=== PATIENT | male | born 1965 | race Caucasian/White ===

== ENCOUNTER 2017-10-27 00:56 | Observation (INO) ==
[2017-10-27] MEDS ORDERED: ONDANSETRON 4 MG/2 ML VIAL IVP ONE (01:10)
[2017-10-27] MEDS ORDERED: KETOROLAC 15 MG/1 ML VIAL IVP ONE (01:10)
[2017-10-27] MEDS ORDERED: Sodium Chloride 0.9% 1,000 ML PRIMARY IV ONE (01:10)
[2017-10-27] MEDS ORDERED: NITROGLYCERIN 0.4 MG SL TAB (BOTTLE OF 3) SL ONE ×2 (01:12→03:33)
--- NOTE | 2017-10-27 01:14 | EKG ---
[address] [address] Measurements Intervals [place] Rate: 86 P: 78 KS: 191 QRS: -63 QRSD: 148 T: -21 QT: 402 QTc: 446 Interpretive Statements SINUS RHYTHM RIGHT BUNDLE BRANCH BLOCK LEFT ANTERIOR FASCICULAR BLOCK No previous ECG available for comparison Electronically Signed On 10-27-17 20:09:49 [facility] by Camilo Norman [email or web address]
[2017-10-27 01:20] LABS: BASOPHILS # (AUTO) 0.04 10*3/UL; BASOPHILS % (AUTO) 0.4 % (0-1); EOSINOPHILS # (AUTO) 0.11 10*3/UL; EOSINOPHILS % (AUTO) 1.2 % (0-8); Hematocrit [HCT] 44.3 % (42.0-52.0); Hemoglobin [HGB] 14.8 g/dL (14.0-18.0); LYMPHOCYTES # (AUTO) 1.52 10*3/uL; MEAN CORPUSCULAR HEMOGLOBIN 31.6 PG (27-31); MEAN CORPUSCULAR HGB CONC 33.4 g/dL (33-37); MEAN CORPUSCULAR VOLUME 94.5 FL (80-90); MEAN PLATELET VOLUME 9.4 FL (7.4-12.2); MONOCYTES # (AUTO) 0.86 10*3/UL (0.3-0.8); MONOCYTES % (AUTO) 9.2 % (5-15); NEUTROPHILS # (AUTO) 6.75 10*3/UL; NEUTROPHILS % (AUTO) 72.7 % (50-80); RED BLOOD COUNT 4.69 10^6/uL (4.70-6.10)
--- NOTE | 2017-10-27 01:21 | PDOC ---
Chest Pain HPI - General Chief Complaint: Chest Pain Stated Complaint: CHEST PAIN Date Seen by Provider: 10/27/17 Time Seen by Provider: 01:13 Source: Patient, EMS Exam Limitations: POSITIVE: No limitations Treatment Prior to Arrival: REPORTS: Nitroglycerin, Oxygen, Aspirin Nurse's Notes Reviewed & Considered: Yes EMS Report Reviewed & Considered: Verbal - History of Present Illness Initial Comments: This is a 52-year-old male complaining of chest pain, left-sided weakness, and left-sided neck pain. 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 Patient took a sublingual nitroglycerin and an adult aspirin prior to EMS arrival. His nitroglycerin is out of date by 2 years. Patient states the nitroglycerin did not help. During transport to the emergency room he received another nitroglycerin, and stated once again that it did not help. Patient attends the [place] [facility] in [place]. He states that in the past he has had chest pain for which she receives Dilaudid. He denies any vomiting or diarrhea, no hematuria dysuria, and no myalgias or arthralgias. Body Location Affected: REPORTS: Upper Extremity (L), Lower Extremity (L), Neck , Chest Timing: REPORTS: Abrupt Duration: 1 hour Severity: Severe Context: REPORTS: Other (Driving) Quality: REPORTS: "Pain", Stabbing, Pressure Radiation: REPORTS: Shoulder (L) Associated Symptoms: REPORTS: Nausea, Diaphoresis, Shortness of Breath Modifying Factors: improves with: None Reported Similar Symptoms Previously: Yes Recently seen/treated/hospitalized: No Any Prior Injuries Related to Current Complaint?: No - Patient Home Medications Home Medications: Home Medications Amlodipine Besylate 5 mg PO QAM 10/27/17 Aspirin [Aspir 81] 81 mg PO QAM 10/27/17 Atorvastatin Calcium 80 mg PO QAM 10/27/17 Levothyroxine Sodium [Synthroid] 175 mcg PO QAM 10/27/17 Losartan [Cozaar] 100 mg PO QAM 10/27/17 Metoprolol Succinate 100 mg PO QAM 10/27/17 Nitroglycerin [Nitrostat] 0.4 mg SL PRN PRN 10/27/17 - Patient Allergies Allergies/Adverse Reactions: Allergies 3 Allergy/AdvReac Type Severity Reaction Status Date / Time Sulfa (Sulfonamide Allergy HIVES Verified 10/27/17 01:06 Antibiotics) ROS - Limitations ROS Limitations: No Limitations Constitution: REPORTS: Diaphoresis Cardiovascular: REPORTS: Chest Pain, Edema Respiratory: REPORTS: Shortness Of Breath Neurological: REPORTS: Tingling, Numbness (Left upper and lower extremity) Gastrointestinal: REPORTS: Nausea Endocrine: REPORTS: Denies Symptoms Musculoskeletal: REPORTS: Lower Extremity Swelling, Pedal Edema Genitourinary: REPORTS: Denies Symptoms Eyes: REPORTS: Denies Symptoms ENT: REPORTS: Denies Symptoms Skin: REPORTS: Denies Skin Symptoms Lympathic: REPORTS: Denies Lympathic Symptoms Immunologic: POSITIVE: Denies Symptoms Psychiatric: POSITIVE: Denies Psych Symptoms Chest Pain PE - General Appearance General Appearance: REPORTS: Alert, Cooperative, No Evidence of Trauma, Moderate Distress - HEENT HEENT: POSITIVE: Head Inspection Nml, Eyes Inspection Nml, Ears Inspection Nml, Nose Inspection Nml, Oral/Dental Inspect. Nml, Pharynx Inspect. Nml, PERRL, EOMI - Neck Neck: REPORTS: Normal Inspection - Respiratory Respiratory: REPORTS: No Respiratory Distress, Breath Sounds Normal, Chest Non- Tender - Cardiovascular Cardiovascular: REPORTS: Regular Rate and Rhythm, Heart Sounds Normal, Strong Pulses, No Murmur, No Gallop, No Friction Rub, No JVD Peripheral Pulses: Radial (R): 4+ - Abdomen Abdomen: Soft: (All Quadrants), Normal Bowel Sounds: (All Quadrants), Denies Tenderness: (All Quadrants), No Splenomegaly: (All Quadrants), No Hepatomegaly: (All Quadrants), No Guarding: (All Quadrants), No Rebound: (All Quadrants), No Palpable Pulse: (All Quadrants), No Palpabale Mass: (All Quadrants), No Distention: (All Quadrants), No Rigidity: (All Quadrants) - Skin Skin: REPORTS: Intact, Normal For Race, Warm, No Rash, Diaphoresis - Extremities Extremity: Non-Tender: (All Extremities), Normal ROM: (All Extremities), Normal Inspection: (All Extremities), Pelvis Stable: (All Extremities), Edema / Swelling: (RLE), (LLE) (Plus3 pitting edema), Positive Theodore's Sign: (RLE), (LLE ) - Neurological / Psychological Neurological: 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, 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 Normal As Tested, Motor Normal, Sensation Normal, Other (No unilateral or lateralizing findings are appreciated) Reflexes: Patellar (R): 3+, Patellar (L): 3+, Radial (R): 4+, Radial (L): 4+ Chest Pain Progress - Results Reviewed by me Xrays/CTs/US Reviewed by me: Yes Discussed with Radiologist: Yes Lab Results Reviewed by Me: Yes CBC and BMP: 10/27/17 01:19 10/27/17 01:19 EKG Interpreted/Reviewed By Me:: Yes (Sinus with RBBB) EKG Interpretation:: POSITIVE: Normal Sinus Rhythm - Patient's Progress Pain Medication Addressed: POSITIVE: Yes Re-Examine Time: 04:11 Status: POSITIVE: Improved MDM / ED Course: Patient was evaluated, an IV started, blood drawn and sent to the lab for studies, radiographic and EKG studies were also obtained. Findings: Initial EKG showed a sinus rhythm with a right bundle branch block and ST depression in leads V5 and V6. CBC is unremarkable, comprehensive metabolic panel shows a potassium of 3.5 and a sodium of 146. CRP is elevated at 1.6. Magnesium is normal. Troponin and CK-MB as well as d-dimer are normal. BNP is normal. Urinalysis is negative. Chest x-ray shows cardiomegaly. CT scan of his chest shows no PE present no aortic dissection. Ultrasound of his bilateral lower extremity shows no DVT present. Patient developed recurrent chest pain at approximately 04 100 and a repeat EKG and troponin were obtained. Repeat troponin was 0 and repeat EKG showed no changes. Assessment: Chest pains with normal cardiac enzymes and equivocal EKG. Chest pain was relieved with sublingual nitroglycerin. Patient is being admitted for rule out myocardial infarction. Plan: Admission for rule out of myocardial infarction. Quality Measure Initiative: CP/AMI: POSITIVE: EKG, ASA Quality Measure Initiative: CAP: POSITIVE: CXR or CT - Consult Consult (If Yes, Name of Consulting MD & Time Called): Yes (Dr. Weathers, 0410 hrs ) Counseled: POSITIVE: Patient, RE: Lab Results, RE: Radiology Results, RE: DX Patient Care Time - Estimated PCT Patient Care Time (In Minutes): 45 Vital Signs - Recent Vital Signs Vital Signs: Vital Signs (Last 8 hours) Temp Pulse Resp BP Pulse Ox 10/27/17 00:55 97.9 F 86 22 156/96 93 - VS Reviewed Vital Signs Reviewed: Yes Discharge Clinical Impression: Chest pain Discharge Disposition: Admit to Inpatient Condition: Stable Date Decision to Admit to Inpatient: 10/27/17 Time Decision to Admit to Inpatient: 04:13
[2017-10-27 01:22] LABS: PLATELET MORPHOLOGY COMMENT NORMAL MORPHOLOGY (NORM); RBC MORPHOLOGY COMMENT NORMAL MORPHOLOGY (NORM); WBC MORPHOLOGY COMMENT NORMAL MORPHOLOGY (NORM)
[2017-10-27 01:31] LABS: HEMOGLOBIN A1C 5.57 % (4.2-6.0)
[2017-10-27 01:37] LABS: BLOOD UREA NITROGEN 16 mg/dL (7-22); BUN/CREATININE RATIO 17.77 (6-20); SERUM ALBUMIN 4.1 g/dL (3.5-4.8)
[2017-10-27 01:58] LABS: BILIRUBIN,URINE SMALL (NEG); CLARITY,URINE CLEAR (CLEAR); COLOR,URINE YELLOW (Y); GLUCOSE, URINE (UA) 250 mg/dL (NEG); OCCULT BLOOD,URINE Trace-intact (NEG); PH,URINE 6.5 (5.0-8.5); PROTEIN,URINE TRACE mg/dl (NEG)
[2017-10-27 02:05] LABS: BACTERIA,URINE RARE; SQUAMOUS EPITHELIAL CELL,UR MODERATE; URINE SAMPLE TYPE CLEAN CATCH URINE; WBC,URINE 0-1
--- NOTE | 2017-10-27 02:25 | DI ---
EXAM: XR Chest, 1 View CLINICAL HISTORY: chest pain and SOB TECHNIQUE: Frontal view of the chest. COMPARISON: No relevant prior studies available. FINDINGS: Lungs: Prominent pulmonary vascularity. Mild basilar atelectasis or infiltrate. Pleural space: Trace left pleural effusion not excluded. No pneumothorax. Heart: Enlarged cardiomediastinal silhouette, may be related to technique. Mediastinum: See above. Bones/joints: Spinal hardware noted. IMPRESSION: 1. Prominent pulmonary vascularity. Mild basilar atelectasis or infiltrate. 2. Trace left pleural effusion not excluded. 3. Enlarged cardiomediastinal silhouette, may be related to technique.
--- NOTE | 2017-10-27 03:42 | DI ---
EXAM: CT Head Without Intravenous Contrast CLINICAL HISTORY: pain TECHNIQUE: Axial computed tomography images of the head/brain without intravenous contrast. COMPARISON: No relevant prior studies available. FINDINGS: Brain: No hemorrhage. No acute cortical infarct. No mass effect or midline shift. Ventricles: Unremarkable. Bones/joints: No acute fracture. Soft tissues: Unremarkable. Sinuses: Mild sinus disease. Mastoid air cells: Unremarkable as visualized. IMPRESSION: No acute intracranial process.
--- NOTE | 2017-10-27 03:45 | EKG ---
[address] [place] [address] Measurements Intervals [place] Rate: 62 P: 70 [place]: 201 QRS: -1 QRSD: 150 T: -13 QT: 469 QTc: 475 Interpretive Statements SINUS RHYTHM RIGHT BUNDLE BRANCH BLOCK Compared to ECG 10/27/2017 01:06:07 Left anterior fascicular block no longer present Electronically Signed On 10-27-17 20:09:07 [facility] by Camilo Norman [id number]
--- NOTE | 2017-10-27 03:50 | DI ---
EXAM: US Duplex Bilateral Lower Extremity Veins CLINICAL HISTORY: Bilateral edema and calf pain TECHNIQUE: Real-time ultrasound scan of the veins of the bilateral lower extremities with color Doppler flow, spectral waveform analysis and compression. COMPARISON: No relevant prior studies available. FINDINGS: Right deep veins: No DVT in the visualized right lower extremity veins. The veins are compressible with normal color flow and augmentation. Right superficial veins: Unremarkable as visualized. Left deep veins: No DVT in the visualized left lower extremity veins. The veins are compressible with normal color flow and augmentation. Left superficial veins: Unremarkable as visualized. Soft tissues: Mild subcutaneous edema. IMPRESSION: No evidence of deep venous thrombosis.
--- NOTE | 2017-10-27 04:00 | DI ---
EXAM: CT Angiography Chest With Intravenous Contrast CLINICAL HISTORY: SOB. Pain. TECHNIQUE: Axial computed tomographic angiography images of the chest with intravenous contrast using pulmonary embolism protocol. MIP reconstructed images were created and reviewed. COMPARISON: No relevant prior studies available. FINDINGS: Limitations: Please note the lung bases are not entirely included in the [id number]. Pulmonary arteries: No pulmonary embolism. Aorta: No aortic aneurysm or dissection. Lungs: Dependent lung densities, likely atelectasis. Mild peribronchial thickening. Pleural space: No significant pleural effusion or pneumothorax. Heart: Mild cardiomegaly. Bones/joints: No acute fracture. Soft tissues: Probable sebaceous cyst in the right mid-upper back. . Lymph nodes: Unremarkable. IMPRESSION: 1. No evidence of pulmonary embolism or aortic dissection. 2. Dependent lung densities, likely atelectasis. Mild peribronchial thickening.
[2017-10-27] MEDS ORDERED: Acetaminophen 1000mg Inj 1,000 MG/100 ML VIAL IV PRN ×2 (04:06→04:09)
[2017-10-27] MEDS ORDERED: NITROGLYCERIN 0.4 MG SL TAB (BOTTLE OF 3) SL PRN (04:45)
[2017-10-27] MEDS ORDERED: CALCIUM CARBONATE 500 MG (TUMS) CHEWABLE TABLET PO PRN (04:45)
[2017-10-27] MEDS ORDERED: ONDANSETRON 4 MG/2 ML VIAL IVP PRN (04:45)
[2017-10-27] MEDS ORDERED: NORMAL SALINE 10 ML SYRINGE FLUSH IVP PRN (04:45)
[2017-10-27] MEDS ORDERED: LIDOCAINE W/ SODIUM BICARB 0.5 ML SYR SUBD PRN (04:45)
[2017-10-27 04:58] VITALS: RESP 20
[2017-10-27] MEDS ORDERED: HYDROcodone-APAP 5 MG -325 MG TABLET PO PRN (05:05)
[2017-10-27 06:10] LABS: AMPHETAMINE SCREEN NEGATIVE (NEG); CANNABINOID SCREEN,URINE NEGATIVE (NEG); COCAINE SCREEN NEGATIVE (NEG); METHADONE URINE SCREEN NEGATIVE (NEG); METHAMPHETAMINES SCREEN,URINE NEGATIVE (NEG); OPIATE SCREEN,URINE NEGATIVE (NEG); URINE SAMPLE TYPE CLEAN CATCH URINE
[2017-10-27] MEDS ORDERED: oxyCODONE/APAP 10/325 Tab 1 EACH TAB PO PRN (07:31)
--- NOTE | 2017-10-27 07:34 | PDOC ---
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 the pain described as squeezing 8 out of 10 there was shortness of breath and nausea he said he found a place to park her the truck. A Student route sales delivery drivers supervisor was with him called the medics. He tried some old nitroglycerin that he had but continued to have the pain. The medics gave him aspirin and nitroglycerin and the pain started to ease up. And he was giving when he is in the ER also more nitroglycerin that helped to bring the pain down to 3. Also improved numbness in his left arm.d Continue to have some numbness in the left face and some pain he said in the medial aspect of the left leg. He had EKG done CT scans of head and CT chest are all negative. And he was admitted. He had another episode half an hour before I saw him he was given nitroglycerin and that helped ease his pain. he Describes pain maybe 2 out of 10. He said he had chest pains before but this is worse than before. At that time they had to adjust the dosage of his levothyroxine. He said they gave him nitroglycerin mainly for high blood pressure but not for chest pain. Past Medical History Medical History: 1. Hypertension. 2. Hypercholesterolemia. 3. Sleep apnea on CPAP with oxygen at night. 4. History of thyroid cancer status post thyroidectomy. 5. Hypothyroidism Surgical History: 1. History of previous back surgeries. 2. History of thyroidectomy for thyroid cancer Pertinent Family History: 1. Mother from massive heart attack at age 41, brother had SD and is younger than him Past Social History: He said a pack of cigarettes would last him a week, used to smoke heavier than that . Occasionally drinks. No drugs. 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 Tobacco Use: Light Tobacco Smoker In the Past 12 Months, Have Used or Abuse Any of the Following Substance: None Alcohol Use: Occasionally Medication / Allergies Home Medications: Home Medications Medication Instructions Recorded Confirmed Type Amlodipine Besylate 5 mg PO QAM 10/27/17 10/27/17 History Aspirin [Aspir 81] 81 mg PO QAM 10/27/17 10/27/17 History Atorvastatin Calcium 80 mg PO QAM 10/27/17 10/27/17 History Levothyroxine Sodium [Synthroid] 175 mcg PO QAM 10/27/17 10/27/17 History Losartan [Cozaar] 100 mg PO QAM 10/27/17 10/27/17 History Metoprolol Succinate 100 mg PO QAM 10/27/17 10/27/17 History Nitroglycerin [Nitrostat] 0.4 mg SL PRN PRN 10/27/17 10/27/17 History Allergies/Adverse Reactions: Allergies 3 Allergy/AdvReac Type Severity Reaction Status Date / Time Sulfa (Sulfonamide Allergy HIVES Verified 10/27/17 06:24 Antibiotics) Review of Systems - Review of Systems All Systems: Reviewed & No Additional Complaints Except as Stated Exam - Vitals Vital Signs: Vital Signs Temperature 98.2 F Temperature Source Temporal Artery Scan Pulse Rate [Pulse Oximeter] 70 Pulse Rate [Telemetry] 86 Respiratory Rate 20 Blood Pressure [Right Arm] 128/69 Pulse Ox 91 Oxygen Delivery Method Room Air Height 5 ft 10 in Weight 356 lb - General General Appearance: No Acute Distress, Obese, Morbidly Obese - Head Head Exam: Normal Inspection - Eye Eye Exam: POSITIVE: Normal Appearance - ENT ENT Exam: POSITIVE: Normal Exam - Neck Neck Exam: Normal Inspection - Respiratory Respiratory Exam: POSITIVE: Clear to Auscultation - Bilaterally - Cardiovascular Cardiovascular Exam: POSITIVE: RRR - GI/Abdominal GI/Abdominal Exam: POSITIVE: Normal Bowel Sounds, Non Tender, Non Distended, Soft, No Organomegaly - Rectal Rectal Exam: POSITIVE: Deferred - External Exam: POSITIVE: Deferred Exam: POSITIVE: Deferred - Extremities Extremities Exam: POSITIVE: Normal Inspection - Back Back Exam: POSITIVE: Normal Inspection - Neurological Neurological Exam: POSITIVE: Alert, Oriented x 3, CN II-XII Intact, No Facial Droop, Speech Intact / Clear, Moves All Extremities Equally - Psychiatric Psychiatric Exam: POSITIVE: Normal Affect - Integumentary Integumentary Exam: POSITIVE: Normal Color Results - Labs CBC and BMP: 10/27/17 01:19 10/27/17 01:19 - EKG Data -: EKG Interpreted by Me (Showed sinus rhythm with right bundle branch block.) - Imaging Status: Report Reviewed by Me (CT of the chest was negative for PE, CT of the head showed no intracranial abnormality, ultrasound of the leg was negative for DVT.) Assessment and Plan - Patient Problems (1) Chest pain Current Visit: Yes Status: Acute Comment: I did tell him the thing that doesn't fit is the leg symptoms into his symptoms chest pain . I think though with the chest pain will rule him out and then will do a stress test. Will do a chemical stress test for him. If he has a recurrence of the chest I May speak with the reel tender. Meanwhile continue with aspirin. Code(s): R07.9 - Chest pain, unspecified (2) Left leg numbness Current Visit: Yes Status: Acute Comment: He described in addition to the left arm and neck numbness, pain and also left leg numbness. Hard to explain I think will do an MRI of his head to rule out ischemic events. Code(s): R20.0 - Anesthesia of skin
--- NOTE | 2017-10-27 08:59 | DCSUMMARY ---
Hospitalization Summary Admit Date: 10/27/2017 Discharge Date: 10/27/17 Hospital Course: Transfer diagnoses 1. Episode of chest pain enzymes negative, unable to do a stress test because of his weight 2. Morbid obesity 3. Hypertension 4. Hypercholesterolemia 5. 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 the pain described as squeezing 8 out of 10 there was shortness of breath and nausea he said he found a place to park his truck. A Student cpr ambulance driver was with him called the medics. He tried some old nitroglycerin that he had but continued to have the pain. The medics gave him aspirin and nitroglycerin and the pain started to ease up. And he was given when he is in the ER also more nitroglycerin that helped to bring the pain down to 3. Also numbness in his left arm improved. he Continued to have some numbness in the left face and some pain he said in the medial aspect of the left leg. He had an EKG done CT scans of head and CT chest all are negative, he was admitted for rule out. He had another episode half an hour before I saw him he was given nitroglycerin and that helped ease his pain. he Describes his pain maybe 2 out of 10. He said he had chest pains before but this is worse than before. At that time they had to adjust the dosage of his levothyroxine. He said they gave him nitroglycerin mainly for high blood pressure but not for chest pain. We were planning to do an MRI of his head and also to do a stress test. However I was called by the fiber technician because of his weight we can't do the stress test here. He needs pharmacological stress test. Because of inability to perform the test here I spoke with the bead wire taper in [place] Dr. Barr and he accepted the patient the patient will be transferred once a bed is available there. I did explain that to the patient and he agreed with the plan of transfer there. Laboratory Results 10/27/17 10/27/17 10/27/17 Range/Units 01:19 01:19 01:19 WBC 9.30 (4.8-10.8) 10^3/uL RBC 4.69 L (4.70-6.10) 10^6/uL Hgb 14.8 (14.0-18.0) g/dL Hct 44.3 (42.0-52.0) % MCV 94.5 H (80-90) FL MCH 31.6 H (27-31) PG MCHC 33.4 (33-37) g/dL RDW Std Deviation 43.6 (39-50) fL RDW Coeff of Margarita 13.1 (11.5-14.5) % Plt Count 281 (140-350) 10*3/uL MPV 9.4 (7.4-12.2) FL Immature Gran % (Auto) 0.2 (0-5) % Neut % (Auto) 72.7 (50-80) % Lymph % (Auto) 16.3 (10-50) % [place] % (Auto) 9.2 (5-15) % Eos % (Auto) 1.2 (0-8) % Baso % (Auto) 0.4 (0-1) % Immature Gran # (Auto) 0.02 10*3/UL Neut # (Auto) 6.75 10*3/UL Lymph # (Auto) 1.52 10*3/uL [place] # (Auto) 0.86 H (0.3-0.8) 10*3/UL Eos # (Auto) 0.11 10*3/UL Baso # (Auto) 0.04 10*3/UL WBC Morphology Comment Normal morphology (NORM) Plt Morphology Comment Normal morphology (NORM) RBC Morph Comment Normal morphology (NORM) D-Dimer 0.37 (0.00-0.59) mg/L Sodium 146 H (135-145) meq/L Potassium 3.5 L (3.8-5.2) meq/L Chloride 109 (98-112) meq/L Carbon Dioxide 25 (23-33) meq/L Anion Gap 12 (5-20) BUN 16 (7-22) mg/dL Creatinine 0.9 (0.70-1.50) mg/dL Estimated GFR > 60 (>60 ml/min/1.73m(2)) BUN/Creatinine Ratio 17.77 (6-20) Glucose 152 H (78-110) mg/dL Mean Blood Glucose mg/dL Hemoglobin A1c (4.2-6.0) % Calculated Osmolality 305.0 H (267-292) mOsm/kg Calcium 9.0 (8.7-10.7) mg/dL Magnesium 2.0 (1.6-2.4) mg/dL Total Bilirubin 0.5 (0.3-1.2) mg/dL AST 17 L (21-57) IU/L ALT 24 (21-72) IU/L Alkaline Phosphatase 99 (38-126) IU/L CK-MB (CK-2) (0.00-5.00) NG/ML Troponin I Handheld (< 0.040) ng/mL Troponin I (< 0.040) ng/mL C-Reactive Protein 1.8 H (0.0-0.9) mg/dL NT-Pro-B Natriuret Pep 63.4 (0-125) PG/ML Total Protein 7.3 (6.1-8.0) g/dL Albumin 4.1 (3.5-4.8) g/dL Globulin 3.2 (2.50-4.10) g/dL Albumin/Globulin Ratio 1.20 L (1.3-2.0) mg/g TSH (0.2700-4.2000) uIU/mL Free T4 (0.93-1.71) ng/dL Free T3 pg/mL (2.77-5.27) PG/ML Ur Collection Type Urine Color (Y) Urine Clarity (CLEAR) Urine pH (5.0-8.5) Ur Specific [place] (1.005-1.030) U Specif Grav (Refrac) Urine Protein (NEG) mg/dl Urine Glucose (UA) (NEG) mg/dL Urine Ketones (NEG) Urine Occult Blood (NEG) Urine Nitrate (NEG) Urine Bilirubin (NEG) Urine Urobilinogen (0.2) EU/dL Ur Leukocyte Esterase (NEG) Urine RBC (NONE) /hpf Urine WBC (NONE) Ur Squamous Epith Cells (NONE) Ur Renal Epithelial Cell (NONE) Urine Crystals Urine Bacteria (NONE) Urine Casts (NONE) Urine Mucus (NONE) Urine Trichomonas (NONE) Urine Yeast (NONE) Ur Culture Indicated? Urine Opiates Screen (NEG) Ur Buprenorphine (NEG) Ur Oxycodone Screen (NEG) Urine Methadone Screen (NEG) Ur Propoxyphene Screen (NEG) Barbiturate Screen (NEG) U Tricyclic Antidepress (NEG) Phencyclidine Screen (NEG) Amphetamines Screen (NEG) U Methamphetamines Scrn (NEG) Benzodiazepines Screen (NEG) Cocaine Screen (NEG) U Marijuana (THC) Screen (NEG) 10/27/17 10/27/17 10/27/17 Range/Units 01:19 01:19 01:19 WBC (4.8-10.8) 10^3/uL RBC (4.70-6.10) 10^6/uL Hgb (14.0-18.0) g/dL Hct (42.0-52.0) % MCV (80-90) FL MCH (27-31) PG MCHC (33-37) g/dL RDW Std Deviation (39-50) fL RDW Coeff of Margarita (11.5-14.5) % Plt Count (140-350) 10*3/uL MPV (7.4-12.2) FL Immature Gran % (Auto) (0-5) % Neut % (Auto) (50-80) % Lymph % (Auto) (10-50) % [place] % (Auto) (5-15) % Eos % (Auto) (0-8) % Baso % (Auto) (0-1) % Immature Gran # (Auto) 10*3/UL Neut # (Auto) 10*3/UL Lymph # (Auto) 10*3/uL [place] # (Auto) (0.3-0.8) 10*3/UL Eos # (Auto) 10*3/UL Baso # (Auto) 10*3/UL WBC Morphology Comment (NORM) Plt Morphology Comment (NORM) RBC Morph Comment (NORM) D-Dimer (0.00-0.59) mg/L Sodium (135-145) meq/L Potassium (3.8-5.2) meq/L Chloride (98-112) meq/L Carbon Dioxide (23-33) meq/L Anion Gap (5-20) BUN (7-22) mg/dL Creatinine (0.70-1.50) mg/dL Estimated GFR (>60 ml/min/1.73m(2)) BUN/Creatinine Ratio (6-20) Glucose (78-110) mg/dL Mean Blood Glucose 99.481 mg/dL Hemoglobin A1c 5.57 (4.2-6.0) % Calculated Osmolality (267-292) mOsm/kg Calcium (8.7-10.7) mg/dL Magnesium (1.6-2.4) mg/dL Total Bilirubin (0.3-1.2) mg/dL AST (21-57) IU/L ALT (21-72) IU/L Alkaline Phosphatase (38-126) IU/L CK-MB (CK-2) 0.41 (0.00-5.00) NG/ML Troponin I Handheld 0.000 (< 0.040) ng/mL Troponin I (< 0.040) ng/mL C-Reactive Protein (0.0-0.9) mg/dL NT-Pro-B Natriuret Pep (0-125) PG/ML Total Protein (6.1-8.0) g/dL Albumin (3.5-4.8) g/dL Globulin (2.50-4.10) g/dL Albumin/Globulin Ratio (1.3-2.0) mg/g TSH 9.71 H (0.2700-4.2000) uIU/mL Free T4 (0.93-1.71) ng/dL Free T3 pg/mL (2.77-5.27) PG/ML Ur Collection Type Urine Color (Y) Urine Clarity (CLEAR) Urine pH (5.0-8.5) Ur Specific [place] (1.005-1.030) U Specif Grav (Refrac) Urine Protein (NEG) mg/dl Urine Glucose (UA) (NEG) mg/dL Urine Ketones (NEG) Urine Occult Blood (NEG) Urine Nitrate (NEG) Urine Bilirubin (NEG) Urine Urobilinogen (0.2) EU/dL Ur Leukocyte Esterase (NEG) Urine RBC (NONE) /hpf Urine WBC (NONE) Ur Squamous Epith Cells (NONE) Ur Renal Epithelial Cell (NONE) Urine Crystals Urine Bacteria (NONE) Urine Casts (NONE) Urine Mucus (NONE) Urine Trichomonas (NONE) Urine Yeast (NONE) Ur Culture Indicated? Urine Opiates Screen (NEG) Ur Buprenorphine (NEG) Ur Oxycodone Screen (NEG) Urine Methadone Screen (NEG) Ur Propoxyphene Screen (NEG) Barbiturate Screen (NEG) U Tricyclic Antidepress (NEG) Phencyclidine Screen (NEG) Amphetamines Screen (NEG) U Methamphetamines Scrn (NEG) Benzodiazepines Screen (NEG) Cocaine Screen (NEG) U Marijuana (THC) Screen (NEG) 10/27/17 10/27/17 10/27/17 Range/Units 01:19 01:19 01:56 WBC (4.8-10.8) 10^3/uL RBC (4.70-6.10) 10^6/uL Hgb (14.0-18.0) g/dL Hct (42.0-52.0) % MCV (80-90) FL MCH (27-31) PG MCHC (33-37) g/dL RDW Std Deviation (39-50) fL RDW Coeff of Margarita (11.5-14.5) % Plt Count (140-350) 10*3/uL MPV (7.4-12.2) FL Immature Gran % (Auto) (0-5) % Neut % (Auto) (50-80) % Lymph % (Auto) (10-50) % [place] % (Auto) (5-15) % Eos % (Auto) (0-8) % Baso % (Auto) (0-1) % Immature Gran # (Auto) 10*3/UL Neut # (Auto) 10*3/UL Lymph # (Auto) 10*3/uL [place] # (Auto) (0.3-0.8) 10*3/UL Eos # (Auto) 10*3/UL Baso # (Auto) 10*3/UL WBC Morphology Comment (NORM) Plt Morphology Comment (NORM) RBC Morph Comment (NORM) D-Dimer (0.00-0.59) mg/L Sodium (135-145) meq/L Potassium (3.8-5.2) meq/L Chloride (98-112) meq/L Carbon Dioxide (23-33) meq/L Anion Gap (5-20) BUN (7-22) mg/dL Creatinine (0.70-1.50) mg/dL Estimated GFR (>60 ml/min/1.73m(2)) BUN/Creatinine Ratio (6-20) Glucose (78-110) mg/dL Mean Blood Glucose mg/dL Hemoglobin A1c (4.2-6.0) % Calculated Osmolality (267-292) mOsm/kg Calcium (8.7-10.7) mg/dL Magnesium (1.6-2.4) mg/dL Total Bilirubin (0.3-1.2) mg/dL AST (21-57) IU/L ALT (21-72) IU/L Alkaline Phosphatase (38-126) IU/L CK-MB (CK-2) (0.00-5.00) NG/ML Troponin I Handheld (< 0.040) ng/mL Troponin I (< 0.040) ng/mL C-Reactive Protein (0.0-0.9) mg/dL NT-Pro-B Natriuret Pep (0-125) PG/ML Total Protein (6.1-8.0) g/dL Albumin (3.5-4.8) g/dL Globulin (2.50-4.10) g/dL Albumin/Globulin Ratio (1.3-2.0) mg/g TSH (0.2700-4.2000) uIU/mL Free T4 1.33 (0.93-1.71) ng/dL Free T3 pg/mL 2.97 (2.77-5.27) PG/ML Ur Collection Type Clean catch urine Urine Color (Y) Urine Clarity (CLEAR) Urine pH (5.0-8.5) Ur Specific [place] (1.005-1.030) U Specif Grav (Refrac) 1.020 Urine Protein (NEG) mg/dl Urine Glucose (UA) (NEG) mg/dL Urine Ketones (NEG) Urine Occult Blood (NEG) Urine Nitrate (NEG) Urine Bilirubin (NEG) Urine Urobilinogen (0.2) EU/dL Ur Leukocyte Esterase (NEG) Urine RBC (NONE) /hpf Urine WBC (NONE) Ur Squamous Epith Cells (NONE) Ur Renal Epithelial Cell (NONE) Urine Crystals Urine Bacteria (NONE) Urine Casts (NONE) Urine Mucus (NONE) Urine Trichomonas (NONE) Urine Yeast (NONE) Ur Culture Indicated? Urine Opiates Screen Negative (NEG) Ur Buprenorphine Negative (NEG) Ur Oxycodone Screen Negative (NEG) Urine Methadone Screen Negative (NEG) Ur Propoxyphene Screen Negative (NEG) Barbiturate Screen Negative (NEG) U Tricyclic Antidepress Negative (NEG) Phencyclidine Screen Negative (NEG) Amphetamines Screen Negative (NEG) U Methamphetamines Scrn Negative (NEG) Benzodiazepines Screen Negative (NEG) Cocaine Screen Negative (NEG) U Marijuana (THC) Screen Negative (NEG) 10/27/17 10/27/17 10/27/17 Range/Units 02:04 03:50 07:34 WBC (4.8-10.8) 10^3/uL RBC (4.70-6.10) 10^6/uL Hgb (14.0-18.0) g/dL Hct (42.0-52.0) % MCV (80-90) FL MCH (27-31) PG MCHC (33-37) g/dL RDW Std Deviation (39-50) fL RDW Coeff of Margarita (11.5-14.5) % Plt Count (140-350) 10*3/uL MPV (7.4-12.2) FL Immature Gran % (Auto) (0-5) % Neut % (Auto) (50-80) % Lymph % (Auto) (10-50) % [place] % (Auto) (5-15) % Eos % (Auto) (0-8) % Baso % (Auto) (0-1) % Immature Gran # (Auto) 10*3/UL Neut # (Auto) 10*3/UL Lymph # (Auto) 10*3/uL [place] # (Auto) (0.3-0.8) 10*3/UL Eos # (Auto) 10*3/UL Baso # (Auto) 10*3/UL WBC Morphology Comment (NORM) Plt Morphology Comment (NORM) RBC Morph Comment (NORM) D-Dimer (0.00-0.59) mg/L Sodium (135-145) meq/L Potassium (3.8-5.2) meq/L Chloride (98-112) meq/L Carbon Dioxide (23-33) meq/L Anion Gap (5-20) BUN (7-22) mg/dL Creatinine (0.70-1.50) mg/dL Estimated GFR (>60 ml/min/1.73m(2)) BUN/Creatinine Ratio (6-20) Glucose (78-110) mg/dL Mean Blood Glucose mg/dL Hemoglobin A1c (4.2-6.0) % Calculated Osmolality (267-292) mOsm/kg Calcium (8.7-10.7) mg/dL Magnesium (1.6-2.4) mg/dL Total Bilirubin (0.3-1.2) mg/dL AST (21-57) IU/L ALT (21-72) IU/L Alkaline Phosphatase (38-126) IU/L CK-MB (CK-2) (0.00-5.00) NG/ML Troponin I Handheld 0.000 (< 0.040) ng/mL Troponin I < 0.012 (< 0.040) ng/mL C-Reactive Protein (0.0-0.9) mg/dL NT-Pro-B Natriuret Pep (0-125) PG/ML Total Protein (6.1-8.0) g/dL Albumin (3.5-4.8) g/dL Globulin (2.50-4.10) g/dL Albumin/Globulin Ratio (1.3-2.0) mg/g TSH (0.2700-4.2000) uIU/mL Free T4 (0.93-1.71) ng/dL Free T3 pg/mL (2.77-5.27) PG/ML Ur Collection Type Clean catch urine Urine Color Yellow (Y) Urine Clarity Clear (CLEAR) Urine pH 6.5 (5.0-8.5) Ur Specific [place] 1.020 (1.005-1.030) U Specif Grav (Refrac) Urine Protein Trace (NEG) mg/dl Urine Glucose (UA) 250 (NEG) mg/dL Urine Ketones Negative (NEG) Urine Occult Blood Trace-intact H (NEG) Urine Nitrate Negative (NEG) Urine Bilirubin Small (NEG) Urine Urobilinogen 4.0 (0.2) EU/dL Ur Leukocyte Esterase Negative (NEG) Urine RBC 1-3 (NONE) /hpf Urine WBC 0-1 (NONE) Ur Squamous Epith Cells Moderate (NONE) Ur Renal Epithelial Cell None (NONE) Urine Crystals None Urine Bacteria Rare (NONE) Urine Casts None (NONE) Urine Mucus Moderate (NONE) Urine Trichomonas None (NONE) Urine Yeast None (NONE) Ur Culture Indicated? Culture not set Urine Opiates Screen (NEG) Ur Buprenorphine (NEG) Ur Oxycodone Screen (NEG) Urine Methadone Screen (NEG) Ur Propoxyphene Screen (NEG) Barbiturate Screen (NEG) U Tricyclic Antidepress (NEG) Phencyclidine Screen (NEG) Amphetamines Screen (NEG) U Methamphetamines Scrn (NEG) Benzodiazepines Screen (NEG) Cocaine Screen (NEG) U Marijuana (THC) Screen (NEG) Discharge instruction Diet healthy diet Activity as bedrest Medications Active Medications Amlodipine Besylate (Norvasc) 5 mg PO DAILY [facility] Last Admin: 10/27/17 08:08 Dose: 5 mg Aspirin (Aspirin Ec) 325 mg PO DAILY [facility] Last Admin: 10/27/17 08:08 Dose: 325 mg Atorvastatin Calcium (Lipitor) 80 mg PO BEDTIME [facility] Calcium Carbonate (Tums) 1 - 2 tab PO QID PRN PRN Reason: Heartburn Sodium Chloride (Normal Saline) 1,000 mls @ 75 mls/hr PRIMARY IV ONCE (ED) ONE Stop: 10/27/17 14:29 Last Admin: 10/27/17 01:25 Dose: 75 mls/hr Levothyroxine Sodium 100 mcg/ (Levothyroxine Sodium 75 mcg) 175 mcg PO DAILY@ 0530 [facility] Last Admin: 10/27/17 08:48 Dose: 175 mcg Lidocaine HCl (Lidocaine Buffered Inj) 0.5 ml SUBD ONCE PRN PRN Reason: IV Starts Losartan Potassium (Cozaar) 100 mg PO DAILY [facility] Last Admin: 10/27/17 08:08 Dose: 100 mg Metoprolol Succinate (Toprol Xl) 100 mg PO DAILY [facility] Last Admin: 10/27/17 08:08 Dose: 100 mg Nitroglycerin (Nitrostat Sl 0.4mg Tab) 1 tab SL Q5M PRN PRN Reason: Chest Pain Last Admin: 10/27/17 06:34 Dose: 1 tab Ondansetron HCl (Zofran Inj) 4 mg IVP Q4H PRN PRN Reason: NAUSEA / VOMITING Last Admin: 10/27/17 06:42 Dose: 4 mg Oxycodone/Acetaminophen (Percocet 10/325 Tab) 1 each PO Q4H PRN PRN Reason: Pain Last Admin: 10/27/17 10:40 Dose: 1 each Potassium Chloride (Klor-Con) 10 meq PO BID [facility] Last Admin: 10/27/17 08:08 Dose: 10 meq Sodium Chloride (Saline Flush) 5 - 20 ml IVP BID PRN PRN Reason: Flush Follow[place] [facility] [place] Condition at transfer was stable for transfer Exam - Vitals Vital Signs: Vital Signs Temperature 98.2 F Temperature Source Temporal Artery Scan Pulse Rate [Apical] 68 Pulse Rate [Pulse Oximeter] 70 Pulse Rate [Telemetry] 86 Respiratory Rate 20 Blood Pressure [Right Arm] 128/69 Pulse Ox 91 Oxygen Flow Rate 3 Oxygen Delivery Method Nasal Cannula Height 5 ft 10 in Weight 356 lb Patient Problems - Patient Problem List (1) Chest pain Current Visit: Yes Status: Acute Code(s): R07.9 - Chest pain, unspecified Category: Medical (2) Left leg numbness Current Visit: Yes Status: Acute Code(s): R20.0 - Anesthesia of skin Category: Medical
[2017-10-27] MEDS ORDERED: Potassium Chloride Tab 10 MEQ TAB PO SCH (09:00)
[2017-10-27] MEDS ORDERED: LOSARTAN 50 MG TABLET PO SCH (09:00)
[2017-10-27] MEDS ORDERED: METOPROLOL SUCCINATE 100 MG SR 24H TABLET PO SCH (09:00)
[2017-10-27] MEDS ORDERED: ASPIRIN 325 MG EC TABLET PO SCH (09:00)
[2017-10-27] MEDS ORDERED: AmLODIPine Tab 5 MG TABLET PO SCH (09:00)
--- NOTE | 2017-10-27 10:58 | EKG ---
[address] [address] Measurements Intervals [place] Rate: 68 P: 42 VT: 192 QRS: 8 QRSD: 152 T: -9 QT: 451 QTc: 468 Interpretive Statements SINUS RHYTHM RIGHT BUNDLE BRANCH BLOCK Compared to ECG 10/27/2017 03:45:27 No significant changes Electronically Signed On 10-27-17 20:07:16 MST by Camilo Norman [email or web address]
[2017-10-27 12:11] VITALS: BP 137/73; TEMP 97.6; O2SAT 96
[2017-10-27] MEDS ORDERED: ATORVASTATIN 40 MG TABLET PO SCH (21:00)
== END 2017-10-27 14:19 | disposition short-term general hospital (02) ==
LOC: ER 00:56 → MED/SURG 00:56
PROVIDERS: ADMIT Internal Medicine; ATTEND Internal Medicine